=== PATIENT | male | born 1990 | race Caucasian/White ===

== ENCOUNTER 2018-01-12 00:50 | Emergency (ER) | payer OTHER ==
[~2018-01-12] VITALS: Ht 167.6 cm; Wt 63.6 kg
[2018-01-12] MEDS ORDERED: LIDOCAINE HCL/PF 1% 5 ML VIAL INJ ONE (02:00)
[2018-01-12] MEDS ORDERED: IBUPROFEN 600 MG TABLET PO ONE (02:45)
[2018-01-12] MEDS ORDERED: ACETAMINOPHEN 500 MG TABLET PO ONE (02:45)
[2018-01-12 02:54] VITALS: BP 133/71
== END 2018-01-12 03:07 | disposition home or self-care (01) ==
LOC: EMS 00:52
DX: K08.89 Other specified disorders of teeth and supporting structures (principal); H60.91 Unspecified otitis externa, right ear; F17.210 Nicotine dependence, cigarettes, uncomplicated
CPT/HCPCS: 64400; 99284; J3490